=== PATIENT | male | born 1945 | race Caucasian/White ===

== ENCOUNTER 2025-05-25 10:39 | Inpatient (IN) | payer MEDICARE ==
[~2025-05-25] VITALS: Ht 185.4 cm; Wt 76.2 kg
[2025-05-25 10:45] VITALS: BP 109/72
[2025-05-25] MEDS ORDERED: Ondansetron Hydrochloride 4 MG/2 ML VIAL IV ONE (10:50)
[2025-05-25] MEDS ORDERED: SODIUM CHLORIDE 0.9% 1,000 ML IV ONE (10:50)
[2025-05-25] MEDS ORDERED: fentaNYL CITRATE/PF 50 MCG/ML SYRINGE IV ONE (10:50)
[2025-05-25 11:13] LABS: BASO # 0.0 10*3/uL (0.0-0.1); BASO % 0.0 % (0.0-1.0); EOS # 0.0 10*3/uL (0.0-0.4); EOS % 0.0 % (1.0-4.0); MEAN CELL VOLUME 101.4 fl (80.0-94.0); MEAN CORPUSCULAR HGB 35.7 pg (27.0-31.0); MEAN PLATELET VOLUME 10.9 fl (9.6-12.3); MONO # 0.5 10*3/uL (0.1-1.0); MONO % 6.0 % (3.0-9.0); NEUT # 7.9 10*3/uL (2.3-7.9); NEUT % 89.7 % (47.0-73.0); NUCLEATED RED BLOOD CELL 0.0 % (0.0-0.0); NUCLEATED RED BLOOD CELL 0.0 10*3/uL (0.0-0.0); PLATELET COUNT AUTOMATED 100 10*3/uL (130-400); RED CELL DISTRI WIDTH 14.0 % (0-14.5)
[2025-05-25 11:34] LABS: BUN 21 mg/dl (9-23)
[2025-05-25] MEDS ORDERED: FUROSEMIDE20 M1 PO (11:45)
[2025-05-25] MEDS ORDERED: ALLOPURINOL300 MG PO (11:45)
[2025-05-25] MEDS ORDERED: OMEPRAZOLE MAGN20 MG PO (11:45)
[2025-05-25] MEDS ORDERED: LISINOPRIL10 M1 PO (11:46)
[2025-05-25] MEDS ORDERED: XARE20MG PO (11:46)
[2025-05-25] MEDS ORDERED: ATORVASTATIN CA80 M1 PO (11:46)
[2025-05-25] MEDS ORDERED: CLARITIN10 MG PO (11:47)
[2025-05-25] MEDS ORDERED: ENSURE COMPACT118 ML PO (11:48)
[2025-05-25] MEDS ORDERED: LORazepam 1 MG TAB PO SCH (14:00)
[2025-05-25 15:00] VITALS: BP 103/65
[2025-05-25 16:00] VITALS: BP 110/74
[2025-05-25 20:00] VITALS: BP 102/57
[2025-05-25] MEDS ORDERED: ATORVASTATIN CALCIUM 80 MG TAB PO SCH (22:00)
[2025-05-25 23:07] LABS: BUN 19 mg/dl (9-23)
[2025-05-25] MEDS ORDERED: DEXTROSE 10 % IN WATER 250 ML IV PRN (23:50)
[2025-05-25] MEDS ORDERED: DEXTROSE 50% 25 GM/50 ML VIAL IV PRN (23:50)
[2025-05-26] VITALS: BP 86/65
[2025-05-26 04:00] VITALS: BP 92/51
[2025-05-26 04:32] LABS: MANUAL DIFF REFLEX YES; MEAN CELL VOLUME 98.7 fl (80.0-94.0); MEAN CORPUSCULAR HGB 34.2 pg (27.0-31.0); MEAN PLATELET VOLUME 11.0 fl (9.6-12.3); NUCLEATED RED BLOOD CELL 0.0 % (0.0-0.0); NUCLEATED RED BLOOD CELL 0.0 10*3/uL (0.0-0.0); PLATELET COUNT AUTOMATED 101 10*3/uL (130-400); RED CELL DISTRI WIDTH 14.3 % (0-14.5)
[2025-05-26 04:50] LABS: PLATELET SUFFICIENCY LOW (NORMAL)
[2025-05-26 04:51] LABS: BUN 21 mg/dl (9-23); SGPT/ALT 42 U/L (5-49)
[2025-05-26 05:19] LABS: VITAMIN D, 25-HYDROXY 58.2 ng/mL (30-100)
[2025-05-26] MEDS ORDERED: OMEPRAZOLE 20 MG CAP PO SCH (06:00)
[2025-05-26] MEDS ORDERED: SODIUM CHLORIDE 0.9% 1,000 ML IV ONE (07:45)
[2025-05-26 08:00] VITALS: BP 105/57
[2025-05-26] MEDS ORDERED: LORATADINE 10 MG TAB PO SCH (10:00)
[2025-05-26] MEDS ORDERED: RIVAROXABAN 20 MG TAB PO SCH (10:00)
[2025-05-26] MEDS ORDERED: MULTIVITAMIN 1 TAB TAB PO SCH (10:00)
[2025-05-26] MEDS ORDERED: FOLIC ACID 1 MG TAB PO SCH (10:00)
[2025-05-26] MEDS ORDERED: Thiamine 100 MG TAB PO SCH (10:00)
[2025-05-26 12:00] VITALS: BP 106/65
[2025-05-26 14:15] LABS: BUN 20 mg/dl (9-23)
[2025-05-26 16:00] VITALS: BP 107/74
[2025-05-26] MEDS ORDERED: LORazepam 1 MG TAB PO SCH (16:00)
[2025-05-26 20:00] VITALS: BP 95/56
[2025-05-27] VITALS: BP 97/71
[2025-05-27 05:16] LABS: BUN 18 mg/dl (9-23)
[2025-05-27 06:20] LABS: BASO # 0.0 10*3/uL (0.0-0.1); BASO % 0.0 % (0.0-1.0); EOS # 0.0 10*3/uL (0.0-0.4); EOS % 0.3 % (1.0-4.0); MEAN CELL VOLUME 101.0 fl (80.0-94.0); MEAN CORPUSCULAR HGB 35.0 pg (27.0-31.0); MEAN PLATELET VOLUME 12.2 fl (9.6-12.3); MONO # 0.5 10*3/uL (0.1-1.0); MONO % 15.0 % (3.0-9.0); NEUT # 2.3 10*3/uL (2.3-7.9); NEUT % 74.3 % (47.0-73.0); NUCLEATED RED BLOOD CELL 0.0 % (0.0-0.0); NUCLEATED RED BLOOD CELL 0.0 10*3/uL (0.0-0.0); PLATELET COUNT AUTOMATED 92 10*3/uL (130-400); RED CELL DISTRI WIDTH 14.4 % (0-14.5)
[2025-05-27 08:00] VITALS: BP 108/75
[2025-05-27] MEDS ORDERED: MUPIROCIN 15 GM TUBE T SCH (10:00)
[2025-05-27] MEDS ORDERED: LORazepam 1 MG TAB PO PRN (10:00)
[2025-05-27] MEDS ORDERED: FOAM BANDAGE 5X5 T ONE (11:01)
[2025-05-27] MEDS ORDERED: FOAM BANDAGE 1 EACH BANDAGE T ONE (11:01)
[2025-05-27 12:00] VITALS: BP 109/84
[2025-05-27 14:20] VITALS: BP 109/84
[2025-05-27 14:21] VITALS: BP 109/84
[2025-05-27] MEDS ORDERED: DEXTROSE 5% SALINE 0.9% 1,000 ML IV SCH (14:25)
[2025-05-27 20:00] VITALS: BP 101/70
[2025-05-28] VITALS: BP 108/64
[2025-05-28 06:04] LABS: BUN 19 mg/dl (9-23)
[2025-05-28 06:38] LABS: BASO # 0.0 10*3/uL (0.0-0.1); BASO % 0.0 % (0.0-1.0); EOS # 0.0 10*3/uL (0.0-0.4); EOS % 0.6 % (1.0-4.0); MEAN CELL VOLUME 101.8 fl (80.0-94.0); MEAN CORPUSCULAR HGB 34.9 pg (27.0-31.0); MEAN PLATELET VOLUME 11.8 fl (9.6-12.3); MONO # 0.6 10*3/uL (0.1-1.0); MONO % 18.3 % (3.0-9.0); NEUT # 2.3 10*3/uL (2.3-7.9); NEUT % 72.1 % (47.0-73.0); NUCLEATED RED BLOOD CELL 0.0 % (0.0-0.0); NUCLEATED RED BLOOD CELL 0.0 10*3/uL (0.0-0.0); PLATELET COUNT AUTOMATED 97 10*3/uL (130-400); RED CELL DISTRI WIDTH 14.4 % (0-14.5)
[2025-05-28 08:00] VITALS: BP 119/82
[2025-05-28 12:00] VITALS: BP 113/76
[2025-05-28 16:00] VITALS: BP 106/77
== END 2025-05-28 16:56 | disposition hospice, inpatient (51) | DRG 564 ==
LOC: ED 10:39 → ICCU 12:34 → EDHOLD 12:34 → 5E 12:34 → ICCU 13:58
PROVIDERS: Emergency Medicine; Internal Medicine Nephrology; Student in an Organized Health Care Education/Training Program; ADMIT Internal Medicine; ATTEND Internal Medicine
DX: T79.6XXA Traumatic ischemia of muscle, initial encounter (principal); E43 Unspecified severe protein-calorie malnutrition; E87.1 Hypo-osmolality and hyponatremia; F10.930 Alcohol use, unspecified with withdrawal, uncomplicated; Z66 Do not resuscitate; I48.91 Unspecified atrial fibrillation; I10 Essential (primary) hypertension; E78.5 Hyperlipidemia, unspecified; K21.9 Gastro-esophageal reflux disease without esophagitis; Z51.5 Encounter for palliative care; D53.9 Nutritional anemia, unspecified; R73.9 Hyperglycemia, unspecified; M10.9 Gout, unspecified; S09.8XXA Other specified injuries of head, initial encounter; Z86.73 Personal history of transient ischemic attack (TIA), and cerebral infarction without residual deficits; Z88.1 Allergy status to other antibiotic agents; Z88.8 Allergy status to other drugs, medicaments and biological substances; Z87.891 Personal history of nicotine dependence; Z91.048 Other nonmedicinal substance allergy status; Z68.22 Body mass index [BMI] 22.0-22.9, adult; Z91.09 Other allergy status, other than to drugs and biological substances; W18.39XA Other fall on same level, initial encounter; Y93.89 Activity, other specified; Y92.89 Other specified places as the place of occurrence of the external cause; Y99.8 Other external cause status; Y90.0 Blood alcohol level of less than 20 mg/100 ml

== ENCOUNTER 2025-05-28 17:30 | Inpatient (IN) | payer OTHER ==
[~2025-05-28] VITALS: Ht 182.9 cm; Wt 76.2 kg
[~2025-05-28 17:30] MED LIST: ALLOPURINOL300 MG PO; ATORVASTATIN CA80 M1 PO; CLARITIN10 MG PO; ENSURE COMPACT118 ML PO; FUROSEMIDE20 M1 PO; LISINOPRIL10 M1 PO; OMEPRAZOLE MAGN20 MG PO; XARE20MG PO
[2025-05-28 17:40] VITALS: BP 106/77
[2025-05-28] MEDS ORDERED: HYOSCYAMINE SULFATE 0.125 MG TAB SL PRN (18:20)
[2025-05-28] MEDS ORDERED: ACETAMINOPHEN 650 MG SUPP R PRN (18:20)
[2025-05-28] MEDS ORDERED: LORazepam 0.5 MG TAB PO PRN (18:20)
[2025-05-28] MEDS ORDERED: BISACODYL 10 MG SUPP R PRN (18:25)
[2025-05-28] MEDS ORDERED: Morphine Sulfate 10 MG/0.5 ML CONCENTRATE ORAL SYRINGE PO PRN (18:30)
[2025-05-28 20:00] VITALS: BP 111/68
[2025-05-29] VITALS: BP 120/74
[2025-05-29 08:04] VITALS: BP 104/61
[2025-05-29] MEDS ORDERED: Morphine Sulfate 10 MG/0.5 ML CONCENTRATE ORAL SYRINGE SL PRN (12:40)
[2025-05-29] MEDS ORDERED: Morphine Sulfate 10 MG/0.5 ML CONCENTRATE ORAL SYRINGE SL SCH (16:00)
[2025-05-29 16:05] VITALS: BP 120/88
[2025-05-30] VITALS: BP 112/75
[2025-05-30 08:00] VITALS: BP 99/62
[2025-05-30 16:00] VITALS: BP 104/58
[2025-05-30] MEDS ORDERED: Morphine Sulfate 10 MG/0.5 ML CONCENTRATE ORAL SYRINGE SL PRN (19:30)
[2025-05-30] MEDS ORDERED: HYOSCYAMINE SULFATE 0.125 MG TAB SL PRN (19:30)
[2025-05-30 20:00] VITALS: BP 115/67
[2025-05-30] MEDS ORDERED: Morphine Sulfate 10 MG/0.5 ML CONCENTRATE ORAL SYRINGE SL SCH (20:00)
[2025-05-31] VITALS: BP 112/76
[2025-05-31 08:00] VITALS: BP 74/57
[2025-05-31] MEDS ORDERED: ATROPINE SULFATE 1% 2 ML BOTTLE SL PRN (10:00)
[2025-05-31 12:00] VITALS: BP 91/66
[2025-05-31 16:00] VITALS: BP 85/58
[2025-06-01 08:00] VITALS: BP 93/53
[2025-06-01 16:00] VITALS: BP 82/45
== END 2025-06-01 23:35 | DRG 564 ==
LOC: ICCU 17:30 → 5E 05-30 16:50
PROVIDERS: ADMIT Internal Medicine; ATTEND Internal Medicine
DX: T79.6XXA Traumatic ischemia of muscle, initial encounter (principal); E43 Unspecified severe protein-calorie malnutrition; E87.1 Hypo-osmolality and hyponatremia; F10.939 Alcohol use, unspecified with withdrawal, unspecified; S09.90XA Unspecified injury of head, initial encounter; D53.9 Nutritional anemia, unspecified; X58.XXXA Exposure to other specified factors, initial encounter; F32.A Depression, unspecified; E78.5 Hyperlipidemia, unspecified; R73.9 Hyperglycemia, unspecified; I10 Essential (primary) hypertension; K21.9 Gastro-esophageal reflux disease without esophagitis; Z66 Do not resuscitate; I48.0 Paroxysmal atrial fibrillation; Z51.5 Encounter for palliative care; Y93.89 Activity, other specified; Y92.89 Other specified places as the place of occurrence of the external cause; Y99.8 Other external cause status; Z68.22 Body mass index [BMI] 22.0-22.9, adult